=== PATIENT | female | born 1975 ===

== ENCOUNTER 2017-03-06 18:58 | Inpatient (IN) | payer MEDICAID, SELFPAY ==
[2017-03-06 19:33] VITALS: BMI 35.1
[2017-03-06] MEDS ORDERED: Lactated Ringer's 1,000 ML IV SCH (19:52)
--- NOTE | 2017-03-06 20:00 | OBHP ---
Datetime: 03/06/2017 19:37 Admit Comment, IP Provider: 41yo edc 03/07 by 12wk us presents for induction. She denies decr eased fm, vaginal bleeding, srom, or coitus in past 1mo. Last labor 7hr duration pmhx _ pshx: denies obhx: x3; complete AB sh: denies etoh, drugs or tobacco use nkda medic:pnv I: AMA 39.6wks P: Admit for induction. Indications for induction d/w pt including ama. Induction procedure also d/w pt. For cervidel Pelvic Type - PN: Adequate Extremities - PN: Normal Abdomen - PN: Normal Heart - PN: Normal Neurologic - PN: Normal HEENT - PN: Normal General - PN: Normal Membranes, Provider: Intact Comments, ACOG Physical Exam: GBS NEG Vital Signs Provider: Within Normal Limits NICHD Variability Prov Fetus A: Moderate 6-25bpm Dilatation, Provider: 1 Effacement, Provider: 10 Station, Provider: -3 Genitourinary Exam: Normal
[2017-03-06 20:27] LABS: BASO # 0.1 K/uL (0.0-0.2); BASO % 0.7 % (0.0-2.0); EOS # 0.2 K/uL (0.0-0.7); HEMATOCRIT 39.4 % (34.0-47.0); LYMPH # 2.1 K/uL (1.0-4.3); MEAN CELL VOLUME 92.6 fl (81.0-99.0); MEAN CORPUSCULAR HEMOGLOBIN 31.4 pg (27.0-31.0); MEAN CORPUSCULAR HGB CONC 33.9 g/dL (33.0-37.0); MEAN PLATELET VOLUME 10.3 fl (7.2-11.7); MONO # 0.7 K/uL (0.0-0.8); MONO % 8.1 % (0.0-10.0); NEUT % 66.2 % (50.0-75.0); NRBC % 0.2 % (0.0-0.0); RED CELL DISTRIBUTION WIDTH 19.4 % (11.5-14.5); WHITE BLOOD COUNT 9.1 K/uL (4.8-10.8)
[2017-03-06 20:36] VITALS: BP 125/79; PULSE 67; RESP 18; TEMP 97.8; O2SAT 100
[2017-03-07] MEDS: Lactated Ringer's 1,000 ML IV SCH ×2 (04:20→05:20)
[2017-03-07] MEDS ORDERED: Nalbuphine 20 mg/ml Inj (1 ml) IVP PRN (05:28)
[2017-03-07] MEDS ORDERED: Lidocaine 1% Inj (20ml) ONE (07:36)
--- NOTE | 2017-03-07 08:28 | OBPN ---
Datetime: 03/07/2017 07:31 IP Procedures: Sterile Vag Exam IP Progress Plan: Continue present management FHR - Baseline A Provider: 140 IP Progress Note Comment: Pt noted to have some early decelerations and variables, currently contrac tions sometimes every 3mins others about 5mins apart. Pt examined with attending in room. pt looks un comfortable, declines Epidural, states she feels like pushing Cervix 3/80/-2 given pt is starting to contract more actively and with early and variable decelerations on the st rip Cervidil has been discountinued, removed at 7:28am continue to monitor pt Destinee R. [facility] ADDENDUM: Agree with above p: O2 IV bolus Vital Signs Provider: Reviewed; Within Normal Limits NICHD Accel Fetus A IP Provider: [id number] NICHD Variability Prov Fetus A: Moderate 6-25bpm NICHD Decel Fetus A IP Provider: Early; Variable Datetime: 03/06/2017 21:44 IP Progress Impression: Reassuring heart rate Presentation-Admit: Vertex FHR Category Provider Fetus A: Category I Dilatation, Provider: 1 Effacement, Provider: 20 Station, Provider: -3 Datetime: 03/06/2017 19:37 Membranes, Provider: Intact
[2017-03-07] MEDS ORDERED: Oxycodone/Acetaminophen 5/325 mg Tab PO PRN ×4 (08:44→10:54)
--- NOTE | 2017-03-07 09:14 | OBDS ---
MATERNAL INFORMATION Provider Comments: of live male over intact perineum in KARI presentation followed by fred eric and rest of infant, mouth and nose suctioned, placed on mother's chest, cord clamped an d cut, cord blood obtained, placenta delivered spontaneously, fundus firm, no lacerations needed repa ir, EBL = 100mL, patient otherwise tolerated delivery well LABOR SUMMARY EDC: 03/07/2017 00:00 No. Babies in Womb: 1 Attempted: No LABOR INFORMATION Cervical Ripening Agents: Cervidil (Annotations: Cervidil 10mg Inserted by Dr. Felipe (resident)) Group B Beta Strep: Negative
[2017-03-07] MEDS ORDERED: Lactated Ringer's 1,000 ML IV SCH (10:54)
[2017-03-08 07:15] LABS: HEMATOCRIT 37.5 % (34.0-47.0); MEAN CELL VOLUME 94.1 fl (81.0-99.0); MEAN CORPUSCULAR HEMOGLOBIN 30.5 pg (27.0-31.0); MEAN CORPUSCULAR HGB CONC 32.4 g/dL (33.0-37.0); RED CELL DISTRIBUTION WIDTH 19.2 % (11.5-14.5); WHITE BLOOD COUNT 11.2 K/uL (4.8-10.8)
--- NOTE | 2017-03-08 11:36 | OBPPN ---
Datetime: 03/08/2017 05:02 PP Pain Prov: Within normal limits PP Nausea Prov: Denies PP Flatus Prov: Yes PP BM Prov: No PP Breasts Prov: Normal PP Heart Prov: Normal PP Lungs Prov: Normal PP Abdomen/Uterus Prov: Normal PP Lochia Prov: Normal PP Vulva/Perineum Prov: Normal PP CVA Tenderness Prov: Not Done PP Extremities Prov: Normal PP C/S Incision Prov: Not Applicable PP Progress Prov: Normal PP Comments Phys Exam Prov: uterus: firm at level umbilicus PP Impression Prov: Normal progression PP Plan Prov: Continue present management PP Progress Note Prov: 41 y/o A1 seen and examined at bedside. Patient had uneventful overni ght. Patient reports mild pelvic pain controlled w/ pain meds. OOB/Ambulating w/o dizziness.breastf eeding and bottle feeding baby..Tolerating PO diet well. Lochia is less than menses in volume. Void ing freely w/ no blood noted. Reports + flatus but not bowel movement yet. Denies fevers, chills, n/v/d, CP/SOB, lightheadedness and calf pain. Assessment: 41 y/o A1 s/p 03/07/17 @ 08:35 am tolerating pain w/ medication, toleratin g oral intake, adequate urine output, doing well on PPD1. Plan: - Ibuprofen 600 mg 1 tab Q6h PO prn for mild pain. -Encourage breast feeding and ambulation. Flaca Gregory PGY1 [facility] ADDEDNUM: Pt seen examined by me. Agree with above assessment and plan. Vital Signs Provider PP: Reviewed; Within Normal Limits
--- NOTE | 2017-03-09 09:14 | OBPPN ---
Datetime: 03/09/2017 06:14 PP Pain Prov: Within normal limits PP Nausea Prov: Denies PP Flatus Prov: Yes PP BM Prov: Yes PP Breasts Prov: Normal PP Heart Prov: Normal PP Lungs Prov: Normal PP Abdomen/Uterus Prov: Normal PP Lochia Prov: Normal PP Vulva/Perineum Prov: Normal PP CVA Tenderness Prov: Not Done PP Extremities Prov: Normal PP C/S Incision Prov: Not Applicable PP Progress Prov: Normal PP Comments Phys Exam Prov: Uterus: firm below umbilicus PP Impression Prov: Normal progression PP Plan Prov: Continue present management; Discharge PP Progress Note Prov: 41 y/o A1 seen and examined at bedside bottle feeding baby in the [facility]. Patient had uneventful overnight. Patient reports mild pelvic pain controlled w/ pain meds. O OB/Ambulating w/o dizziness. and bottle feeding baby..Tolerating PO diet well. Lochia i s less than menses in volume. Voiding freely w/ no blood noted. Reports + flatus and 1 bowel move ment yesterday morningt. Denies fevers, chills, n/v/d, CP/SOB, lightheadedness and calf pain. Assessment: 41 y/o A1 s/p 03/07/17 @ 08:35 am tolerating pain w/ medication, toleratin g oral intake, adequate urine output, doing well on PPD2. Plan: - Ibuprofen 600 mg 1 tab Q6h PO prn for mild pain. -Encourage breast feeding and ambulation. -Discharge today Flaca Gregory PGY1 The patient was seen with the resident I agree with note. Patient is day #1 encourage a mbulation, regular diet, analgesics as needed, anticipate discharge tomorrow Vital Signs Provider PP: Reviewed; Within Normal Limits
== END 2017-03-09 13:00 | disposition home or self-care (01) | DRG 373 ==
LOC: H.EROB2 18:58 → H.L&D 19:55 → H.OB/GYN 03-07 10:57
PROVIDERS: ADMIT Obstetrics & Gynecology; ATTEND Obstetrics & Gynecology
PROC: 4A0HXCZ Measurement of Products of Conception, Cardiac Rate, External Approach (ICD-10-PCS; 2017-03-06)
PROC: 10E0XZZ Delivery of Products of Conception, External Approach (ICD-10-PCS; principal; 2017-03-07)
DX: O76 Abnormality in fetal heart rate and rhythm complicating labor and delivery (principal); Z37.0 Single live birth; Z3A.39 39 weeks gestation of pregnancy; O09.523 Supervision of elderly multigravida, third trimester